=== PATIENT | female | born 1970 | race African-American/Black ===

== ENCOUNTER 2017-07-12 14:41 | Emergency (ER) | payer OTHER ==
[2017-07-12] MEDS ORDERED: ACETAMINOPHEN 650MG/20.3ML CUP NGT (19:56)
[2017-07-12] MEDS: SODIUM CHLORIDE 0.9% 1L BAG IV* (20:31)
[2017-07-12] MEDS: ACETAMINOPHEN 500 MG TAB PO (20:31)
[2017-07-12 20:40] LABS: ADD MAN DIFF? NO
[2017-07-12 20:41] LABS: BASOPHILS % 0.5 % (0.0-2.0); EOSINOPHILS % 0.5 % (0.0-7.0); HEMATOCRIT 35.8 % (37.0-47.0); HEMOGLOBIN 11.8 g/dl (12.0-16.0); LYMPHOCYTES # 0.9 10^3/ul (0.8-2.9); LYMPHOCYTES % 22.5 % (15.0-51.0); MEAN CORPUSCULAR HEMOGLOBIN 26.9 pg (29.0-33.0); MEAN CORPUSCULAR VOLUME 81.5 fl (82.0-101.0); MEAN PLATELET VOLUME 10.2 fl (7.4-10.4); MONOCYTE # 0.6 10^3/ul (0.3-0.9); MONOCYTES % 14.8 % (0.0-11.0); NEUTROPHIL # 2.3 10^3/ul (1.6-7.5); NEUTROPHILS % 61.4 % (39.0-77.0); PLATELET COUNT 233 10^3/UL (140-415); RED BLOOD COUNT 4.39 10^6/ul (4.20-5.40); RED CELL DISTRIBUTION WIDTH 13.7 % (11.5-14.5)
[2017-07-12 20:41] LABS: WHITE BLOOD COUNT 3.8 10^3/ul (4.8-10.8)
[2017-07-12 20:59] LABS: ALANINE AMINOTRANSFERASE 35 IU/L (13-69); ALBUMIN 4.4 g/dl (3.3-4.9); ALBUMIN/GLOBULIN RATIO 1.22; ALKALINE PHOSPHATASE 58 IU/L (42-121); AMYLASE 64 U/L (11-123); ANION GAP 19 (8-16); ASPARTATE AMINO TRANSFERASE 34 IU/L (15-46); BILIRUBIN,INDIRECT 0.4 mg/dl (0-1.1); BILIRUBIN,TOTAL 0.4 mg/dl (0.2-1.3); BLOOD UREA NITROGEN 15 mg/dl (7-20); CALCIUM 8.3 mg/dl (8.4-10.2); CARBON DIOXIDE 22 mmol/L (21-31); CHLORIDE 102 mmol/L (97-110); CREATININE 0.91 mg/dl (0.44-1.00); GLUCOSE 92 mg/dl (70-220); LIPASE 14 U/L (23-300); POTASSIUM 3.4 mmol/L (3.5-5.1); SODIUM 140 mmol/L (135-144)
[2017-07-12 21:17] LABS: TROPONIN-I < 0.012 ng/ml (0.00-0.12)
[2017-07-12] MEDS: ONDANSETRON 4 MG INJ IV (21:49)
[2017-07-12] MEDS: FAMOTIDINE 20 MG INJ IV (21:49)
[2017-07-12] MEDS: DIPHENOXYLATE/ATROPINE TAB PO (21:49)
[2017-07-12] MEDS: KETOROLAC 30 MG INJ IV (21:49)
[2017-07-13 02:23] LABS: LACTIC ACID 0.7 mmol/L (0.5-2.0)
== END 2017-07-13 01:25 | disposition home or self-care (01) ==
LOC: E/R 07-13 01:25
DX: R42 Dizziness and giddiness (principal); R11.10 Vomiting, unspecified; R19.7 Diarrhea, unspecified; I10 Essential (primary) hypertension; J45.909 Unspecified asthma, uncomplicated
CPT/HCPCS: 36415; 71045; 80053; 82150; 83605; 83690; 84484; 85025; 87040; 87400; 93005; 96374; 96375; 99285-25